=== PATIENT | male | born 1940 | race Caucasian/White ===

== ENCOUNTER → 2017-01-07 | Outpatient (REF) | payer MEDICARE, BC ==
[~2017-01-07] MED LIST: /WARF25TA PO; AMOLODIPINE PO; ATOR80TA14 PO; CALC600T21 PO; FISHCAP PO; FURO20TA PO; GLUCOSAMINE PO; IBUP200T2 PO; KLOR CON PO; OXYC1CON PO; PERCOCET PO; PRILOSEC PO; TYLE325T5 PO; VITA200019 PO; VITA400C2 PO; VITA500C PO; VITAMIN PO; [UNRECOGNIZED DRUG - OTHER] PO
[2017-01-07 12:46] LABS: BASO % 0.4 % (0.0-1.0); EOS # 0.1 10^3/uL (0.0-0.50); EOS % 1.7 % (0.0-3.0); IMMATURE GRANULOCYTE % 0.4 % (0-0); LYMPH # 1.8 10^3/uL (1.5-4.5); LYMPH % 23.2 % (24.0-44.0); MEAN CORPUSCULAR HEMOGLOBIN 30.6 pg (27.0-33.0); MEAN CORPUSCULAR HGB CONC 32.3 g/dl (32.0-36.5); MEAN CORPUSCULAR VOLUME 94.9 fl (80.0-96.0); MONO # 0.6 10^3/uL (0.0-0.8); MONO % 8.3 % (0.0-5.0); NEUTROPHILS # 5.1 10^3/uL (1.8-7.7); PLATELET COUNT, AUTOMATED 232 10^3/uL (150-450); RED CELL DISTRIBUTION WIDTH 11.7 % (11.5-14.5); WHITE BLOOD COUNT 7.7 10^3/uL (4.0-10.0)
[2017-01-07 13:43] LABS: ALBUMIN 3.2 GM/DL (3.2-5.2); ALKALINE PHOSPHATASE 72 U/L (45-117); ALT/SGPT 31 U/L (12-78); ANION GAP 7 MEQ/L (8-16); AST/SGOT 23 U/L (7-37); BILIRUBIN,TOTAL 0.4 MG/DL (0.2-1.0); BLOOD UREA NITROGEN 17 MG/DL (7-18); CALCIUM LEVEL 8.8 MG/DL (8.8-10.2); CARBON DIOXIDE LEVEL 31 MEQ/L (21-32); CHLORIDE LEVEL 106 MEQ/L (98-107); CREATININE FOR GFR 0.89 MG/DL (0.70-1.30); GLOMERULAR FILTRATION RATE > 60.0 (>42); GLUCOSE, FASTING 89 MG/DL (83-110); POTASSIUM SERUM 3.9 MEQ/L (3.5-5.1); SODIUM LEVEL 144 MEQ/L (136-145); TOTAL PROTEIN 6.1 GM/DL (6.4-8.2)
== END ==
LOC: M SFHCADAM 10:07
PROVIDERS: ATTEND Family Medicine
DX: M06.9 Rheumatoid arthritis, unspecified (principal)

== ENCOUNTER → 2017-02-06 | Outpatient (REF) | payer MEDICARE, BC ==
[2017-02-06 13:23] LABS: FOLATE > 24.0 NG/ML (>5.4); VITAMIN B12 LEVEL 879 PG/ML (247-911)
[2017-02-06 13:24] LABS: FERRITIN 50 NG/ML (26-388); PERCENT SATURATION 36.8 % (19.7-50.0); TOTAL IRON BINDING CAPACITY 288 UG/DL (250-450)
== END ==
LOC: M SFHCADAM 11:07
PROVIDERS: ATTEND Family Medicine
DX: D64.9 Anemia, unspecified (principal)

== ENCOUNTER → 2017-09-20 | Outpatient (CLI) | payer MEDICARE, BC ==
[2017-09-20 13:51] LABS: BASO % 0.4 % (0.0-1.0); EOS # 0.1 10^3/uL (0.0-0.50); HEMATOCRIT 37.5 % (42.0-52.0); HEMOGLOBIN 12.8 g/dl (13.5-17.5); IMMATURE GRANULOCYTE % 0.3 % (0-3.0); LYMPH # 1.6 10^3/uL (1.5-4.5); LYMPH % 20.9 % (24.0-44.0); MEAN CORPUSCULAR HEMOGLOBIN 30.7 pg (27.0-33.0); MEAN CORPUSCULAR HGB CONC 34.1 g/dl (32.0-36.5); MEAN CORPUSCULAR VOLUME 89.9 fl (80.0-96.0); MONO # 0.6 10^3/uL (0.0-0.8); MONO % 7.9 % (0.0-5.0); NEUTROPHILS # 5.3 10^3/uL (1.8-7.7); NEUTROPHILS % 69.5 % (36.0-66.0); PLATELET COUNT, AUTOMATED 223 10^3/uL (150-450); RED BLOOD COUNT 4.17 10^6/uL (4.30-6.10); RED CELL DISTRIBUTION WIDTH 11.5 % (11.5-14.5); WHITE BLOOD COUNT 7.6 10^3/uL (4.0-10.0)
[2017-09-20 14:16] LABS: C REACTIVE PROTEIN QUANTITATIV 3.96 MG/DL (0.00-0.30)
[2017-09-20 14:16] LABS: RHEUMATOID FACTOR QUANT 15.1 IU/ML (<15.0)
[2017-09-20 14:22] LABS: ERYTHROCYTE SEDIMENTATION RATE 57 mm/hr (0-20)
[2017-09-21 14:10] LABS: ANTINUCLEAR ANTIBODIES DIRECT Negative (Negative)
== END ==
LOC: M RADPRO 13:03
DX: M16.12 Unilateral primary osteoarthritis, left hip (principal); M79.605 Pain in left leg; Z96.652 Presence of left artificial knee joint; Z79.899 Other long term (current) drug therapy
CPT/HCPCS: 20610

== ENCOUNTER → 2017-12-16 | Outpatient (REF) | payer MEDICARE, BC | LOC: M SFHCADAM 12:05 | DX: I10 Essential (primary) hypertension (principal); M06.9 Rheumatoid arthritis, unspecified; D63.8 Anemia in other chronic diseases classified elsewhere ==

== ENCOUNTER → 2017-12-18 | Outpatient (REF) | payer MEDICARE, BC ==
[2017-12-18 13:30] LABS: BASO % 0.5 % (0.0-1.0); EOS # 0.2 10^3/uL (0.0-0.50); EOS % 2.1 % (0.0-3.0); HEMATOCRIT 41.3 % (42.0-52.0); HEMOGLOBIN 13.7 g/dl (13.5-17.5); IMMATURE GRANULOCYTE % 0.4 % (0-3.0); LYMPH # 2.3 10^3/uL (1.5-4.5); LYMPH % 29.3 % (24.0-44.0); MEAN CORPUSCULAR HEMOGLOBIN 30.8 pg (27.0-33.0); MEAN CORPUSCULAR HGB CONC 33.2 g/dl (32.0-36.5); MEAN CORPUSCULAR VOLUME 92.8 fl (80.0-96.0); MONO # 0.6 10^3/uL (0.0-0.8); MONO % 7.8 % (0.0-5.0); NEUTROPHILS # 4.7 10^3/uL (1.8-7.7); NEUTROPHILS % 59.9 % (36.0-66.0); PLATELET COUNT, AUTOMATED 188 10^3/uL (150-450); RED BLOOD COUNT 4.45 10^6/uL (4.30-6.10); WHITE BLOOD COUNT 7.9 10^3/uL (4.0-10.0)
[2017-12-18 13:42] LABS: ALBUMIN 3.3 GM/DL (3.2-5.2); ALBUMIN/GLOBULIN RATIO 1.03 (1.00-1.93); ALKALINE PHOSPHATASE 88 U/L (45-117); ALT/SGPT 24 U/L (12-78); ANION GAP 6 MEQ/L (8-16); AST/SGOT 23 U/L (7-37); BILIRUBIN,TOTAL 0.5 MG/DL (0.2-1.0); BLOOD UREA NITROGEN 14 MG/DL (7-18); C REACTIVE PROTEIN QUANTITATIV < 0.30 MG/DL (0.00-0.30); CALCIUM LEVEL 8.5 MG/DL (8.8-10.2); CARBON DIOXIDE LEVEL 30 MEQ/L (21-32); CHLORIDE LEVEL 106 MEQ/L (98-107); CHOLESTEROL LEVEL 157 MG/DL (<200); CHOLESTEROL RISK RATIO 3.488 (<5); CREATININE FOR GFR 0.92 MG/DL (0.70-1.30); GLOMERULAR FILTRATION RATE > 60.0 (>42); GLUCOSE, FASTING 84 MG/DL (70-100); HDL CHOLESTEROL 45 MG/DL (>40); LDL CHOLESTEROL 94 MG/DL (<100); NON-HDL-C 112 MG/DL; POTASSIUM SERUM 4.1 MEQ/L (3.5-5.1); SODIUM LEVEL 142 MEQ/L (136-145); TOTAL PROTEIN 6.5 GM/DL (6.4-8.2); TRIGLYCERIDES LEVEL 90 MG/DL (<150)
[2017-12-18 15:09] LABS: ERYTHROCYTE SEDIMENTATION RATE 11 mm/hr (0-20)
== END ==
LOC: M LABDRWAD 12:41
DX: I10 Essential (primary) hypertension (principal); M06.9 Rheumatoid arthritis, unspecified; D63.8 Anemia in other chronic diseases classified elsewhere
CPT/HCPCS: 80053

== ENCOUNTER → 2018-01-22 | Outpatient (REF) | payer MEDICARE, BC ==
[2018-01-22 13:20] LABS: URIC ACID 5.4 MG/DL (3.5-7.2)
== END ==
LOC: M SFHCADAM 08:14
DX: M79.674 Pain in right toe(s) (principal)
CPT/HCPCS: 84550

== ENCOUNTER → 2018-03-21 | Outpatient (CLI) | payer MEDICARE, BC ==
[~2018-03-21] MED LIST changes: +CALC500T36 PO; +D 50CAP PO; +FISH500C PO; +FLAX10008 PO; +FURO40TA2 PO; +GLUC1CAP9 PO; +HYDR200T3 PO; +MULTCAP PO; +OMEP40CA2 PO; +PANT500T PO; +POTA1TAB23 PO; +TURM500T PO; +VITA400C67 PO; +VITA500C24 PO; +[UNRECOGNIZED DRUG - CODE] PO
--- NOTE | 2018-03-21 09:02 | REP ---
Clinical: Preop evaluation. Technique: PA and lateral. Comparison: 01/24/2012 Findings: Mediastinum and cardiac silhouette are stable and within normal limits. Airway is patent and midline. Lung marin demonstrate chronic changes including scattered calcified granulomata. No acute consolidation, effusion, or pneumothorax. Skeletal structures demonstrate age-related degenerative change. Impression: Chronic stable changes. No acute cardiopulmonary process appreciated. Electronically Signed by Emanuel Cox MD 03/21/2018 08:53 A
[2018-03-21 09:06] LABS: HEMATOCRIT 40.2 % (42.0-52.0); HEMOGLOBIN 13.6 g/dl (13.5-17.5); MEAN CORPUSCULAR HEMOGLOBIN 30.2 pg (27.0-33.0); MEAN CORPUSCULAR HGB CONC 33.8 g/dl (32.0-36.5); MEAN CORPUSCULAR VOLUME 89.3 fl (80.0-96.0); PLATELET COUNT, AUTOMATED 168 10^3/uL (150-450); WHITE BLOOD COUNT 8.6 10^3/uL (4.0-10.0)
[2018-03-21 09:10] LABS: INR 1.09; PROTHROMBIN TIME 14.2 SECONDS (12.1-14.4)
[2018-03-21 09:29] LABS: ALBUMIN 3.3 GM/DL (3.2-5.2); ALT/SGPT 21 U/L (12-78); BILIRUBIN,TOTAL 0.4 MG/DL (0.2-1.0); BLOOD UREA NITROGEN 18 MG/DL (7-18); CALCIUM LEVEL 8.5 MG/DL (8.8-10.2); CARBON DIOXIDE LEVEL 29 MEQ/L (21-32); CHLORIDE LEVEL 106 MEQ/L (98-107); CREATININE FOR GFR 0.92 MG/DL (0.70-1.30); GLOMERULAR FILTRATION RATE > 60.0 (>42); GLUCOSE, FASTING 118 MG/DL (70-100); POTASSIUM SERUM 3.8 MEQ/L (3.5-5.1); SODIUM LEVEL 141 MEQ/L (136-145); TOTAL PROTEIN 6.6 GM/DL (6.4-8.2)
[2018-03-21 10:34] LABS: ERYTHROCYTE SEDIMENTATION RATE 10 mm/hr (0-20)
--- NOTE | 2018-03-22 17:39 | ECGEPIP ---
Stationary ECG Study [facility] Test Date: 2018-03-21 Pat Name: KATIE ROBERSON Department: Room: - Gender: M Brand Specialist: : 1940 Requested By: Kevin Rosenberg Order Number: [id number] Reading MD: Urbano Cummings Measurements Intervals [place] Rate: 52 P: 3 CO: 159 QRS: -14 QRSD: 92 T: 28 QT: 428 QTc: 401 Interpretive Statements SINUS BRADYCARDIA LEFT VENTRICULAR HYPERTROPHY AND ST-T CHANGE RIGHT VENTRICULAR CONDUCTION DELAY COMPARED TO THE 3 TRACINGS IN THE SYSTEM, NO SIGNIFICANT CHANGES Electronically Signed On 03-22-2018 17:39:12 EST by Urbano Cummings
== END ==
LOC: M LAB 08:19
PROVIDERS: ATTEND Family Medicine
DX: Z01.818 Encounter for other preprocedural examination (principal); M17.11 Unilateral primary osteoarthritis, right knee; I10 Essential (primary) hypertension

== ENCOUNTER 2018-04-08 06:17 | Inpatient (IN) | payer MEDICARE, BC ==
--- NOTE | 2018-04-02 09:09 | HPE ---
DATE OF ADMISSION: 04/08/2018 HISTORY OF PRESENT ILLNESS: This is a pleasant male with continuing right knee osteoarthritis. He has consented for right total knee arthroplasty per Dr. Darnell New. Medical optimization was completed with Dr. Jolly thought Dr. Weber's office. The patient states she was cleared, although I am still awaiting the note. X-rays are consistent with advanced osteoarthritis. ALLERGIES: None known to drugs. MEDICATIONS: List includes voltaren 1%. Klor-Con 10 mEq. Amlodipine besylate. Furosemide 40 mg. Omeprazole 40 mg. Tumeric 1000 mg. Men 50 + advance. Vitamin B12 2500 mcg. Vinpocetine 30 mg. Vitamin D 400 units. Vitamin D3 maximum strength 5000 units. Pantothenate acid is 500 mg. Vitamin C 1000 mg. Glucosamine chondroitin 1500 mcg 05/1199 mg. Flaxseed oil 1300 mg. Benazepril HCl. Hydroxychloroquine sulfate. MEDICAL PROBLEM LIST: 1. Symptomatic right knee. 2. Osteoarthritis. 3. Hypertension. 4. Reflux disease. 5. Rheumatoid arthritis. SURGICAL HISTORY: Pertinent for left total knee arthroplasty. FAMILY HISTORY: Positive for hypertension. SOCIAL HISTORY: He has never smoked. Denies ethanol intake or illicit drugs. REVIEW OF SYSTEMS: Denies chest pain, shortness of breath, dyspnea on exertion, fever, chills, malaise, upper respiratory or urinary tract symptoms. Preoperative Labs by Dr. Weber completed on 03/21/2018 showed hematocrit at 40.2. Glucose 118. Anion gap 6. Calcium 8.5. Chest x-ray results via [facility] service date 03/21/2018 shows chronic stable changes. No acute cardiopulmonary process appreciated. Electrocardiogram (EKG) result read by Dr. Clement Emiliano requesting provider, Dr. Weber 03/22/2018 FINDINGS: Sinus bradycardia, left first ventricular hypertrophy and ST-T change. Right ventricular conduction delay. No significant changes compared to three tracings in the system. PHYSICAL EXAMINATION: Height 5'6", weight 175.0, temperature 98.7, blood pressure (BP) 130/62, pulse 62, respirations 16. This is a pleasant well-developed, well-nourished male in no acute distress. He is alert and x3. Mood and affect are appropriate. He is ambulating without overt antalgic assistance or favoring. His bilateral lower extremities are supple, soft, nontender to palpation, grossly intact to light touch. Negative calf tenderness. Homans' sign, palpable cords. Skin is completely intact without any irritation. Right knee positive joint line tenderness with crepitance through flexion and extension. Left knee noted old healed anterior vertical knee scar site consistent with total knee arthroplasty. Bowels soft, nontender times four. Chest rises symmetrically. Regular rate and rhythm. Lungs are clear. Neck supple. Negative jugular venous distension (JVD) or bruits. Normocephalic. IMPRESSION: 1. Right knee symptomatic osteoarthritis. 2. The patient consented for right total knee arthroplasty per Dr. Darnell New. 3. Medical optimization completed by Dr. Jolly per patient's history. I am awaiting optimization note. 4. On-call to the operating room. 2 grams IV Kefzol in operating room. 5. SCDs and TEDs in operating room. MTDD
[~2018-04-08] VITALS: Ht 167.6 cm; Wt 79.4 kg
[2018-04-08] VITALS (7 sets, daily range): BP systolic 156–163; BP diastolic 80–101
[2018-04-08] MEDS ORDERED: EPINEPHrine INJ 1 MG/ML 1ML AMP As Ordered ONE (06:58)
[2018-04-08] MEDS ORDERED: TRANEXAMIC ACID 100 MG/ML 10ML VIAL As Ordered ONE (06:58)
[2018-04-08] MEDS ORDERED: ceFAZolin 1GM INJ (J0690 PER 500MG) As Ordered ONE (06:58)
[2018-04-08] MEDS ORDERED: BUPIVACAINE LIPOSOME/PF 1.3% 20ML VIAL (13.3MG/ML)(EXPAREL)(C9290 PER1MG) As Ordered ONE (06:58)
[2018-04-08] MEDS ORDERED: LR 1,000 ML IV ONE (07:00)
[2018-04-08] MEDS ORDERED: MUPI2OI (07:05)
[2018-04-08] MEDS ORDERED: MIDAZOLAM INJ 2 MG/2 ML VIAL (J2250) As Ordered ONE ×2 (07:26→09:14)
[2018-04-08] MEDS ORDERED: fentaNYL 100 MCG/2 ML INJECTION (J3010) As Ordered ONE (07:26)
--- NOTE | 2018-04-08 07:44 | IPN ---
DATE: 04/08/2018 The patient seen and examined. He wishes to go ahead with the right knee arthroplasty. He understands the nature of this, the risks of bleeding, infection, damage to nerves, vessels, persistent pain, wear loosening, blood clots, medical problems, among others. Preop clearance was obtained. He wishes to proceed.
[2018-04-08] MEDS ORDERED: MIDAZOLAM INJ 2 MG/2 ML VIAL (J2250) IV ONE (08:15)
[2018-04-08] MEDS ORDERED: fentaNYL 100 MCG/2 ML INJECTION (J3010) IV ONE (08:15)
[2018-04-08] MEDS ORDERED: BUPIVACAINE/DEXTROSE 0.75% 2 ML AMP As Ordered ONE (08:21)
[2018-04-08] MEDS ORDERED: PROPOFOL 200 MG/20 ML VIAL As Ordered ONE (08:24)
[2018-04-08] MEDS ORDERED: dexameTHASONE 10 MG/1 ML VIAL PRES.FREE (J1100) ONE (08:25)
[2018-04-08] MEDS ORDERED: ROPIvacaine 0.5% 30 ML INJECTION (J2795 PER 1MG) ONE (08:25)
[2018-04-08] MEDS ORDERED: ONDANSETRON 4MG/2ML VIAL (J2405) As Ordered ONE (09:14)
[2018-04-08] MEDS ORDERED: PROPOFOL 500 MG/50 ML VIAL As Ordered ONE (09:14)
[2018-04-08] MEDS ORDERED: LIDOCAINE 2% INJ 100 MG/5 ML SDV (FOR ANES.) As Ordered ONE (09:14)
[2018-04-08] MEDS ORDERED: MORPHINE 4 MG/ML 1ML VIAL/SYRINGE (J2270) IV PRN ×2 (10:30→10:45)
[2018-04-08] MEDS ORDERED: fentaNYL 100 MCG/2 ML INJECTION (J3010) IV PRN (10:45)
[2018-04-08] MEDS ORDERED: FLEET ENEMA PR PRN (10:45)
[2018-04-08] MEDS ORDERED: ACETAMINOPHEN TAB 650MG DOSE (2X325MG) PO PRN (10:45)
[2018-04-08] MEDS ORDERED: ONDANSETRON 4MG/2ML VIAL (J2405) IV PRN ×2 (10:45)
[2018-04-08] MEDS ORDERED: LR 1,000 ML IV SCH (10:45)
--- NOTE | 2018-04-08 11:18 | REP ---
PORTABLE AP LATERAL RIGHT KNEE: HISTORY: Postoperative. The patient is status post right total knee replacement. There is no acute fracture or dislocation. Subcutaneous air and surgical marcello are present in the overlying tissue. IMPRESSION: The patient is status post right total knee replacement. There is anatomic alignment. Electronically Signed by Cal Macario MD 04/08/2018 11:27 A
[2018-04-08] MEDS: LR 1,000 ML IV SCH ×2 (13:17→23:50)
[2018-04-08] MEDS: PERCOCET 5MG/325MG TAB PO PRN ×2 (13:25→20:08)
--- NOTE | 2018-04-08 22:53 | CR.PDOC ---
General Date of Consultation: Apr 08, 2018 Referring Provider: DEON KOLB PA-C Primary Care Physician: ED LEDESMA DO Attending Physician: ED LEDESMA DO Consultation REASON FOR CONSULTATION/CHIEF COMPLAINT: postop medicine consult HISTORY OF PRESENT ILLNESS: 68 year old male presents for elective R total knee arthroplasty ALLERGIES: Please see below. HOME MEDICATIONS: Please see below. PAST MEDICAL HISTORY: GERD, HTN, rheumatoid arthritis, Banuelos's esophagus, hyperlipidemia, known calcified granulomas in left lung, underlying osteoarthritis ECHO shows LVEF > 60%, borderline LVH, grade I diastolic dysfunction (01/2016), cataracts, dry eye, blepharitis, anemia of chronic disease PAST SURGICAL HISTORY: left knee replacement FAMILY HISTORY: Father: NE Mother: CVA Siblings: lung cancer, pancreatic cancer, Alzheimer's dementia SOCIAL HISTORY: Marital status and/or living arrangements: lives at home with his Employment: [email or web address] Denies tobacco, alcohol, or drug use REVIEW OF SYSTEMS: CONSTITUTIONAL: no fever, good appetite HEENT: no cold symptoms CARDIOVASCULAR: no chest pain RESPIRATORY: no dyspnea MUSCULOSKELETAL: denies knee pain, states right knee feels stiff GASTROINTESTINAL: no nausea or vomiting SKIN: no rash PSYCHIATRIC: mild pleasant confusion HEMATOLOGIC/LYMPHATIC: denies excess bleeding from incision PHYSICAL EXAMINATION: VITAL SIGNS: Please see below. GENERAL APPEARANCE: no acute distress HEENT: MMM RESPIRATORY: CTAB CARDIOVASCULAR: regular rate and rhythm ABDOMEN: bowel sounds positive, soft nontender nondistended EXTREMITIES: no edema NEUROLOGICAL: no focal deficit PSYCHIATRIC: mild pleasant confusion LABORATORY DATA: Please see below. ASSESSMENT/PLAN: 1. Postop R total knee arthroplasty -- routine care as per surgery 2. HTN -- resume Lasix and potassium 3. GERD -- resume omeprazole 4. RA -- resume Plaquenil postop day 2 Vital Signs/I&O Vital Signs Date Time Temp Pulse Resp B/P (MAP) Pulse Ox O2 Delivery O2 Flow Rate FiO2 04/08/18 20:08 16 04/08/18 17:00 98.8 67 160/89 (112) 98 04/08/18 11:15 Room Air 04/08/18 08:31 2 Allergies Coded Allergies: No Known Drug Allergy (Verified Allergy, Unknown, 03/10/18) Thiopental (Verified Allergy, Unknown, QUESTIONABLE, 03/10/18) Home Medications Scheduled (Multivitamins) 1 Cap Cap, 1 CAP PO DAILY, (Reported) (Glucosamine & Chondroitin 500-400 mg) 1 Cap Cap, 1 CAP PO DAILY, (Reported) Ascorbic Acid (Vitamin C) 500 Mg Cap, 1,000 MG PO DAILY, (Reported) Calcium Pantothenate (Pantothenic Acid) 500 Mg Tab, 500 MG PO BID, (Reported) Cholecalciferol (Vitamin D3) 5,000 Unit Cap, 5,000 UNIT PO DAILY, (Reported) Curcuma Longa (Turmeric) Extra (Turmeric) 500 Mg Tab, 500 MG PO DAILY, (Reported) Fish Oil (Fish Oil) 500 Mg Cap, 500 MG PO DAILY, (Reported) Furosemide (Furosemide) 40 Mg Tab, 40 MG PO DAILY, (Reported) Hydroxychloroquine Sulfate (Hydroxychloroquine Sulfat) 200 Mg Tab, 200 MG PO DAILY, (Reported) Linseed Oil (Flaxseed Oil) 1,000 Mg Cap, 1,000 MG PO DAILY, (Reported) Omeprazole (Omeprazole) 40 Mg Cap, 40 MG PO DAILY, (Reported) Oyster Shell Calcium (Calcium) 500 Mg Tab, 500 MG PO DAILY, (Reported) Potassium Chloride (Potassium Chloride ER) 10 Meq Tab, 10 MEQ PO BID, (Reported) Vinpocetine (Vinpocetine) 1 Pow Pow, 30 MG PO DAILY, (Reported) Vitamin E (Vitamin E-400) 400 Unit Cap, 400 UNIT PO DAILY, (Reported) Miscellaneous Medications Mupirocin (Mupirocin) 2 % Oin, (Reported) ED LEDESMA DO Apr 08, 2018 22:53
[2018-04-09] MEDS: PERCOCET 5MG/325MG TAB PO PRN ×2 (01:21→05:51)
[2018-04-09 02:00] VITALS: BP 128/64
[2018-04-09 06:00] VITALS: BP 168/78
[2018-04-09] MEDS ORDERED: PERCOCET 5MG/325MG TAB PO PRN (06:30)
[2018-04-09 06:31] LABS: HEMATOCRIT 33.5 % (42.0-52.0); HEMOGLOBIN 11.5 g/dl (13.5-17.5); MEAN CORPUSCULAR HEMOGLOBIN 30.7 pg (27.0-33.0); MEAN CORPUSCULAR HGB CONC 34.3 g/dl (32.0-36.5); MEAN CORPUSCULAR VOLUME 89.3 fl (80.0-96.0); PLATELET COUNT, AUTOMATED 143 10^3/uL (150-450); RED BLOOD COUNT 3.75 10^6/uL (4.30-6.10)
[2018-04-09] MEDS ORDERED: XARE10TA PO (06:40)
[2018-04-09] MEDS ORDERED: PERC5TAB12 PO (06:40)
[2018-04-09] MEDS ORDERED: OMEPRAZOLE 20 MG CAP PO SCH (09:00)
[2018-04-09] MEDS ORDERED: MIRALAX *UNIT DOSE* 17GM PACKET PO SCH (09:00)
[2018-04-09] MEDS ORDERED: POTASSIUM CHLORIDE 10 MEQ SR TABLET PO SCH (09:00)
[2018-04-09] MEDS ORDERED: FUROSEMIDE 40 MG TAB PO SCH (09:00)
[2018-04-09] MEDS ORDERED: MOM 30ML SUSPENSION UDC PO SCH (09:00)
[2018-04-09] MEDS ORDERED: RIVAROXABAN 10 MG TAB (XARELTO) PO SCH (09:00)
--- NOTE | 2018-04-09 09:47 | RO ---
DATE OF PROCEDURE: 04/08/2018 PREOPERATIVE DIAGNOSIS: Right Knee Osteoarthritis POSTOPERATIVE DIAGNOSIS: same PROCEDURE: Right total knee arthroplasty using a Attune rotating platform cruciate retaining size 7 femur, size 7 tibia, 8 polyethylene and a 38 patellar button. SURGEON: Darnell New MD WOOD VENEER TAPER: SVETLANA Mccoy ANESTHESIA: Spinal ESTIMATED BLOOD LOSS: Less than 50. COMPLICATIONS: None. INDICATIONS: This is a 77-year-old gentleman who has had gradually worsening right knee pain. He has severe arthritis and wished to go ahead with a knee replacement having failed conservative management. He understood the nature this, the risks of bleeding, infection, damage to nerves, vessels, persistent pain, wear loosening, blood clots, medical problems, , among others. DESCRIPTION OF PROCEDURE: The patient was taken to the operating room and placed in supine position after spinal anesthesia was anesthesia was induced. The right lower extremity was prepped and draped in usual sterile fashion. Time-out was performed. Tourniquet was inflated. I then created a longitudinal incision over the anterior aspect of the knee, performed a medial parapatellar arthrotomy per routine, everted the patella and flexed the knee up used a canal initiating reamer on the femoral side, followed by the intramedullary guide set at 5 degrees of valgus and a 9 mm cut. This was pinned in place by the central supply assistant and the central supply assistant made the distal femoral cut under my direct supervision as I protected soft tissues. Sized the femur to be a 7. Placed the drill holes in the end of the femur with the external rotation dialed in and the cutting block size 7 was placed. This was secured in place. The remaining cuts were made. I then used the cutting guide to create the notch in the end of the femur to allow for the trochlear groove of the component. We then prepared the tibia. Tibial alignment guide was placed in the appropriate amount of valgus and posterior slope and pinned in place at 4 mm off the low side. The proximal tibia cut was made. The bone was removed and I then used a senior php web developer to remove soft tissue and bone and osteophytes from either side. The gap appeared to be appropriate. I had done a medial release. The tibial tray was prepared. A size 7 fit very nicely. This was pinned in place, drilled, broached and then the trial components were placed. I had used the spacer blocks to determine that a size 8 seemed to be the most appropriate for flexion and extension with excellent alignment and balance. The patella then freehand cut removing about 7 mm of bone sized to be a 38. Drill holes were placed. Drill holes were placed at the end of the femur. The central supply assistant prepared the bone cement in the modern technique. I removed the trial components and irrigated. Placed some of the Exparel in the deep tissues. Dried the bony surfaces. Cemented on the tibial tray. Placed polyethylene cement on the femoral. Placed polyethylene and all excess bone cement was removed and the patella was cemented on as well, held in place with the clamp. Once all the excess bone cement had been removed and the cement had hardened, we removed the patellar clamp. We irrigated, placed the tranexamic acid (TXA) solution, placed the Exparel that was remaining in the deep tissues. Closed the deep layer with interrupted #1 Vicryl suture in running Stratafix suture obtaining a watertight closure. I had, had to do a lateral release to some degree but the patella tracked very nicely following the lateral release and it was tracking well once the wound was closed. The superficial layer was irrigated. Subcutaneous was closed with #2-0 Vicryl, skin with marcello. Sterile dressing was applied. Tourniquet was deflated and he was taken to recovery in stable condition. There were no known complications. The central supply assistant was instrumental in holding retractors and assisting in mixing the bone cement, making one of the cuts and assisting in wound closure. STACIE
--- NOTE | 2018-04-11 15:29 | DSES ---
DATE OF ADMISSION: 04/08/2018 DATE OF DISCHARGE: 04/09/2018 ATTENDING PHYSICIAN: Dr. New ADMISSION DIAGNOSIS: Osteoarthritis, right knee. OTHER DIAGNOSES: 1. Gastric reflux disease. 2. Hypertension. 3. Rheumatoid arthritis. 4. Elevated lipids. 5. Banuelos's esophagitis. 6. Anemia of chronic disease. DISCHARGE DIAGNOSIS: Osteoarthritis, right knee status post right total knee arthroplasty. OPERATION PERFORMED: Right total knee arthroplasty. HISTORY: This is a pleasant 77-year-old male patient with progressively worsening right knee pain and stiffness. He failed to improve with conservative management. He was admitted for elective knee replacement on the right side. HOSPITAL COURSE: The patient was admitted on the day of surgery and underwent a right total knee arthroplasty which was uneventful. He did well in the postoperative period and his hospital course was without complications. He was up with physical therapy per their protocol and his pain was controlled. On the day of discharge, he was doing well, weightbearing as tolerated on his right lower extremity. He will use thromboembolic-deterrent (PATT) stockings for 30 days for deep vein thrombosis (DVT) prophylaxis. He will also the use Xarelto 10 mg per the protocol for DVT prophylaxis. He will resume his preoperative medications and diet. He was given instructions to include but not limited to wound monitoring and activity limitations. He will followup in our office in 10-14 days for surgical followup. Please refer to the medical record further details.
== END 2018-04-09 11:20 | disposition home or self-care (01) | DRG 470 ==
LOC: M OR 06:17 → M MS5PR 11:25
PROVIDERS: ADMIT Orthopaedic Surgery; ATTEND Orthopaedic Surgery
PROC: 0SRC0J9 Replacement of Right Knee Joint with Synthetic Substitute, Cemented, Open Approach (ICD-10-PCS; principal; 2018-04-08 08:00)
DX: M17.11 Unilateral primary osteoarthritis, right knee (principal); I10 Essential (primary) hypertension; K21.9 Gastro-esophageal reflux disease without esophagitis; M06.9 Rheumatoid arthritis, unspecified; Z96.652 Presence of left artificial knee joint; Z79.899 Other long term (current) drug therapy; K22.70 Barrett's esophagus without dysplasia; J84.10 Pulmonary fibrosis, unspecified; D63.8 Anemia in other chronic diseases classified elsewhere

== ENCOUNTER → 2018-06-23 | Outpatient (REF) | payer MEDICARE, BC ==
[~2018-06-23] MED LIST changes: -/WARF25TA PO; +CALC12504 PO; -CALC500T36 PO; +COUM1TAB18 PO; +MUPI2OI; +OXYC1TAB23 PO; +PERC5TAB12 PO; -PERCOCET PO; +XARE10TA PO
== END ==
LOC: M SFHCPLAZ 12:00
PROVIDERS: ATTEND Internal Medicine Rheumatology
DX: M05.79 Rheumatoid arthritis with rheumatoid factor of multiple sites without organ or systems involvement (principal); Z53.8 Procedure and treatment not carried out for other reasons

== ENCOUNTER → 2018-06-26 | Outpatient (REF) | payer MEDICARE, BC ==
[2018-06-26 13:41] LABS: BASO % 0.5 % (0.0-1.0); EOS # 0.2 10^3/uL (0.0-0.50); EOS % 2.3 % (0.0-3.0); HEMATOCRIT 42.1 % (42.0-52.0); HEMOGLOBIN 13.6 g/dl (13.5-17.5); LYMPH # 2.3 10^3/uL (1.5-4.5); LYMPH % 31.6 % (24.0-44.0); MEAN CORPUSCULAR HEMOGLOBIN 30.4 pg (27.0-33.0); MEAN CORPUSCULAR HGB CONC 32.3 g/dl (32.0-36.5); MEAN CORPUSCULAR VOLUME 94.2 fl (80.0-96.0); MONO # 0.6 10^3/uL (0.0-0.8); MONO % 8.5 % (0.0-5.0); NEUTROPHILS # 4.2 10^3/uL (1.8-7.7); NEUTROPHILS % 56.7 % (36.0-66.0); PLATELET COUNT, AUTOMATED 182 10^3/uL (150-450); RED BLOOD COUNT 4.47 10^6/uL (4.30-6.10); WHITE BLOOD COUNT 7.4 10^3/uL (4.0-10.0)
[2018-06-26 13:50] LABS: ALBUMIN 3.6 GM/DL (3.2-5.2); ALT/SGPT 21 U/L (12-78); BILIRUBIN,TOTAL 0.4 MG/DL (0.2-1.0); BLOOD UREA NITROGEN 17 MG/DL (7-18); C REACTIVE PROTEIN QUANTITATIV < 0.30 MG/DL (0.00-0.30); CALCIUM LEVEL 8.6 MG/DL (8.8-10.2); CARBON DIOXIDE LEVEL 31 MEQ/L (21-32); CHLORIDE LEVEL 106 MEQ/L (98-107); CREATININE FOR GFR 0.91 MG/DL (0.70-1.30); GLOMERULAR FILTRATION RATE > 60.0 (>42); GLUCOSE, FASTING 90 MG/DL (70-100); POTASSIUM SERUM 4.1 MEQ/L (3.5-5.1); SODIUM LEVEL 142 MEQ/L (136-145); TOTAL PROTEIN 6.5 GM/DL (6.4-8.2)
[2018-06-26 14:07] LABS: ERYTHROCYTE SEDIMENTATION RATE 11 mm/hr (0-20)
== END ==
LOC: M LABDRWAD 12:58
PROVIDERS: ATTEND Internal Medicine Rheumatology
DX: M05.79 Rheumatoid arthritis with rheumatoid factor of multiple sites without organ or systems involvement (principal)

== ENCOUNTER → 2018-09-24 | Outpatient (REF) | payer MEDICARE, BC ==
[~2018-09-24] MED LIST changes: -CALC12504 PO; +CALC500T61 PO
[2018-09-24 12:49] LABS: BASO % 0.5 % (0.0-1.0); EOS # 0.2 10^3/uL (0.0-0.50); EOS % 2.2 % (0.0-3.0); HEMATOCRIT 41.9 % (42.0-52.0); HEMOGLOBIN 13.6 g/dl (13.5-17.5); LYMPH # 2.5 10^3/uL (1.5-4.5); LYMPH % 29.6 % (24.0-44.0); MEAN CORPUSCULAR HEMOGLOBIN 29.9 pg (27.0-33.0); MEAN CORPUSCULAR HGB CONC 32.5 g/dl (32.0-36.5); MEAN CORPUSCULAR VOLUME 92.1 fl (80.0-96.0); MONO # 0.7 10^3/uL (0.0-0.8); MONO % 7.9 % (0.0-5.0); NEUTROPHILS % 59.6 % (36.0-66.0); PLATELET COUNT, AUTOMATED 189 10^3/uL (150-450); RED BLOOD COUNT 4.55 10^6/uL (4.30-6.10); WHITE BLOOD COUNT 8.3 10^3/uL (4.0-10.0)
[2018-09-24 13:15] LABS: ALBUMIN 3.5 GM/DL (3.2-5.2); ALT/SGPT 20 U/L (12-78); BILIRUBIN,TOTAL 0.3 MG/DL (0.2-1.0); BLOOD UREA NITROGEN 23 MG/DL (7-18); C REACTIVE PROTEIN QUANTITATIV < 0.30 MG/DL (0.00-0.30); CALCIUM LEVEL 9.2 MG/DL (8.8-10.2); CARBON DIOXIDE LEVEL 33 MEQ/L (21-32); CHLORIDE LEVEL 107 MEQ/L (98-107); CPK CREATINE PHOSPHOKINASE 86 U/L (39-308); CREATININE FOR GFR 1.04 MG/DL (0.70-1.30); GLOMERULAR FILTRATION RATE > 60.0 (>35); GLUCOSE, FASTING 95 MG/DL (70-100); POTASSIUM SERUM 4.4 MEQ/L (3.5-5.1); SODIUM LEVEL 142 MEQ/L (136-145)
[2018-09-24 14:32] LABS: ERYTHROCYTE SEDIMENTATION RATE 10 mm/hr (0-20)
== END ==
LOC: M SFHCRHEU 09:49
PROVIDERS: ATTEND Internal Medicine Rheumatology
DX: M05.79 Rheumatoid arthritis with rheumatoid factor of multiple sites without organ or systems involvement (principal)
CPT/HCPCS: 80053; 82550; 84443; 85025; 85652; 86140; G0463

== ENCOUNTER → 2019-02-02 | Outpatient (REF) | payer MEDICARE, BC ==
[~2019-02-02] MED LIST changes: -OMEP40CA2 PO; +OMEP40CA97 PO
[2019-02-02 12:48] LABS: BASO % 0.3 % (0.0-1.0); EOS # 0.1 10^3/uL (0.0-0.5); EOS % 1.4 % (0.0-3.0); HEMATOCRIT 42.2 % (42.0-52.0); HEMOGLOBIN 13.8 g/dl (13.5-17.5); LYMPH # 2.6 10^3/uL (1.5-5.0); LYMPH % 26.9 % (24.0-44.0); MEAN CORPUSCULAR HGB CONC 32.7 g/dl (32.0-36.5); MEAN CORPUSCULAR VOLUME 94.8 fl (80.0-96.0); MONO # 0.7 10^3/uL (0.0-0.8); MONO % 7.2 % (0.0-5.0); NEUTROPHILS # 6.1 10^3/uL (1.5-8.5); NEUTROPHILS % 63.9 % (36.0-66.0); PLATELET COUNT, AUTOMATED 181 10^3/uL (150-450); RED BLOOD COUNT 4.45 10^6/uL (4.30-6.10); WHITE BLOOD COUNT 9.5 10^3/uL (4.0-10.0)
[2019-02-02 13:03] LABS: ALBUMIN 3.5 GM/DL (3.2-5.2); ALT/SGPT 20 U/L (12-78); BILIRUBIN,TOTAL 0.4 MG/DL (0.2-1.0); BLOOD UREA NITROGEN 20 MG/DL (7-18); CARBON DIOXIDE LEVEL 31 MEQ/L (21-32); CHLORIDE LEVEL 108 MEQ/L (98-107); CREATININE FOR GFR 1.06 MG/DL (0.70-1.30); GLOMERULAR FILTRATION RATE > 60.0 (>35); GLUCOSE, FASTING 117 MG/DL (70-100); POTASSIUM SERUM 4.3 MEQ/L (3.5-5.1); SODIUM LEVEL 144 MEQ/L (136-145); TOTAL PROTEIN 6.9 GM/DL (6.4-8.2)
== END ==
LOC: M LABDRWAD 12:06
PROVIDERS: ATTEND Family Medicine
DX: L29.9 Pruritus, unspecified (principal); I10 Essential (primary) hypertension
CPT/HCPCS: 36415; 80053; 84443; 85025; G0463

== ENCOUNTER 2019-03-27 11:58 | Emergency (ER) | payer MEDICARE, BC ==
[~2019-03-27] VITALS: Ht 167.6 cm; Wt 75.9 kg
[2019-03-27] MEDS ORDERED: BUPIVACAINE HCL 0.5% 10 ML VIAL SC ONE (13:15)
[2019-03-27] MEDS ORDERED: LIDOCAINE W/EPINEPHRINE 1% 20ML VIAL SC ONE (13:15)
--- NOTE | 2019-03-27 13:44 | REP ---
Left thumb: Four views. History: Table saw injury. Findings: There is an open and comminuted fracture of the distal tuft of the thumb with overlying soft tissues swelling irregularity and overlying dressing. There is also IP and MCP joint osteoarthritis. There is a metallic foreign body at the dorsal aspect of the first metacarpal. No other evidence of foreign body seen. Impression: Open distal phalangeal fracture at the thumb. IP joint osteoarthritis. Metallic foreign body adjacent to the first metacarpal diaphysis. Question old foreign body. Electronically Signed by Jae Worrell MD 03/27/2019 01:56 P
[2019-03-27] MEDS ORDERED: cefTRIAXone SOD 1 GM in D5W MINI-BAG PLUS 50 ML IV ONE (14:00)
[2019-03-27] MEDS ORDERED: KEFL500C17 PO (15:00)
[2019-03-27] MEDS ORDERED: NORC1TAB7 PO (15:00)
[2019-03-27] MEDS ORDERED: AMLO5TAB6 PO (15:22)
[2019-03-27 15:47] VITALS: BP 172/80
== END 2019-03-27 16:06 | disposition home or self-care (01) ==
LOC: EDBD 11:58 → M ED 11:58
DX: S62.522A Displaced fracture of distal phalanx of left thumb, initial encounter for closed fracture (principal); W31.2XXA Contact with powered woodworking and forming machines, initial encounter; Y92.099 Unspecified place in other non-institutional residence as the place of occurrence of the external cause; Y93.9 Activity, unspecified; Y99.9 Unspecified external cause status; K21.9 Gastro-esophageal reflux disease without esophagitis; I10 Essential (primary) hypertension; E78.5 Hyperlipidemia, unspecified; K22.70 Barrett's esophagus without dysplasia; M19.042 Primary osteoarthritis, left hand; Z79.899 Other long term (current) drug therapy; Z88.8 Allergy status to other drugs, medicaments and biological substances
CPT/HCPCS: 73140; 96374; 99284; J0696

== ENCOUNTER 2019-07-10 11:47 | Emergency (ER) | payer MEDICARE, BC ==
[~2019-07-10] VITALS: Ht 170.2 cm; Wt 77.5 kg
[~2019-07-10 11:47] MED LIST changes: +AMLO5TAB6 PO; +KEFL500C17 PO; +NORC1TAB7 PO
[2019-07-10] MEDS ORDERED: RA T500C2 PO (12:14)
[2019-07-10] MEDS ORDERED: CIDA500T2 PO (12:14)
[2019-07-10] MEDS ORDERED: VITAD1000T PO (12:14)
[2019-07-10 12:56] LABS: BASO # 0.1 10^3/uL (0.0-0.2); BASO % 0.4 % (0.0-1.0); EOS % 0.3 % (0.0-3.0); HEMATOCRIT 42.1 % (42.0-52.0); HEMOGLOBIN 14.3 g/dl (13.5-17.5); LYMPH # 2.2 10^3/uL (1.5-5.0); LYMPH % 18.5 % (24.0-44.0); MEAN CORPUSCULAR HEMOGLOBIN 31.2 pg (27.0-33.0); MEAN CORPUSCULAR VOLUME 91.9 fl (80.0-96.0); MONO # 0.6 10^3/uL (0.0-0.8); MONO % 4.8 % (0.0-5.0); NEUTROPHILS # 8.8 10^3/uL (1.5-8.5); NEUTROPHILS % 75.7 % (36.0-66.0); PLATELET COUNT, AUTOMATED 200 10^3/uL (150-450); RED BLOOD COUNT 4.58 10^6/uL (4.30-6.10); WHITE BLOOD COUNT 11.7 10^3/uL (4.0-10.0)
[2019-07-10] MEDS ORDERED: NS 1,000 ML IV SCH (13:00)
[2019-07-10 13:06] LABS: INR 1.14; PROTHROMBIN TIME 14.3 SECONDS (11.8-14.0)
[2019-07-10] MEDS ORDERED: MECLIZINE 25 MG TABLET PO ONE (13:15)
[2019-07-10] MEDS ORDERED: lisinopriL 20 MG TAB PO ONE (13:30)
[2019-07-10 13:36] LABS: BLOOD UREA NITROGEN 21 MG/DL (7-18); CALCIUM LEVEL 8.6 MG/DL (8.8-10.2); CARBON DIOXIDE LEVEL 29 MEQ/L (21-32); CHLORIDE LEVEL 111 MEQ/L (98-107); CK-MB VALUE MASS 5.7 NG/ML (<3.6); CPK CREATINE PHOSPHOKINASE 109 U/L (39-308); GLOMERULAR FILTRATION RATE > 60.0 (>35); GLUCOSE, FASTING 142 MG/DL (70-100); MAGNESIUM LEVEL 2.3 MG/DL (1.8-2.4); MB/CK RELATIVE INDEX 5.23 (< OR =4); POTASSIUM SERUM 3.7 MEQ/L (3.5-5.1); SODIUM LEVEL 145 MEQ/L (136-145); TROPONIN I < 0.02 NG/ML (< 0.10)
[2019-07-10 13:37] LABS: ETHYL ALCOHOL (ETHANOL) < 0.003 % (0.000-0.010); THYROID STIMULATING HORMONE 0.747 uIU/ML (0.358-3.740)
[2019-07-10 13:43] VITALS: BP 178/87
--- NOTE | 2019-07-10 14:06 | REP ---
CT BRAIN WITHOUT CONTRAST: HISTORY: Dizziness. Comparison CT study January 24, 2012. FINDINGS: Digital lump receiver radiograph demonstrates that the patient is edentulous. Bony calvarium is intact on lump receiver and bone window setting axial images. Visualized paranasal sinuses are clear. There is some vascular calcification in the distal internal carotid arteries bilaterally. On soft-tissue window settings, there is generalized volume loss. There are tiny foci of low density in the right thalamus and left inferior basal ganglia consistent with tiny old lacunar infarcts. No acute infarction is seen. Mild small vessel changes are seen. No extra-axial fluid collection, mass, or hemorrhage is noted. IMPRESSION: Old lacunar infarcts in the basal ganglia. Diffuse atrophy and vascular calcification. No acute intracranial abnormality seen. Electronically Signed by Jae Worrell MD 07/10/2019 04:16 P
--- NOTE | 2019-07-10 14:22 | REP ---
PORTABLE CHEST X-RAY: SINGLE VIEW. HISTORY: Syncope/near syncope. COMPARISON STUDY: March 21, 2018 FINDINGS: There are granulomatous calcifications again noted in the left lung. The lung marin are otherwise clear. The pleural angles are sharp. The aorta is somewhat tortuous. Heart size is normal. Pulmonary vasculature is not increased. No bony abnormalities seen. IMPRESSION: Granulomatous calcifications on the left. Otherwise, no acute disease. Electronically Signed by Jae Worrell MD 07/10/2019 04:17 P
[2019-07-10] MEDS ORDERED: LISI-538 PO (15:26)
[2019-07-10 15:30] VITALS: BP 187/81
[2019-07-10] MEDS ORDERED: [UNRECOGNIZED DRUG - SUPPLY] (15:33)
--- NOTE | 2019-07-10 15:44 | ECGEPIP ---
[facility] - ED Test Date: 2019-07-10 Pat Name: KATIE ROBERSON Department: Room: - Gender: Male Discovery Guide: angeles TREJOB: 1940 Requested By: AUGUSTINA MILLER Order Number: [id number] Reading MD: Alyssa Nieves Measurements Intervals [place] Rate: 43 P: 22 HI: 177 QRS: -17 QRSD: 91 T: 53 QT: 438 QTc: 372 Interpretive Statements SINUS BRADYCARDIA LAD LEFT VENTRICULAR HYPERTROPHY AND ST-T CHANGE RIGHT VENTRICULAR CONDUCCTION DELAY CW 03/21/18 RATE DECREASED SIMILAR MORPHOLOGY Electronically Signed on 07-10-2019 15:44:02 EDT by Alyssa Nieves
== END 2019-07-10 15:45 | disposition home or self-care (01) ==
LOC: M ED 11:47
DX: R00.1 Bradycardia, unspecified (principal); R42 Dizziness and giddiness; I10 Essential (primary) hypertension; R53.1 Weakness; I25.10 Atherosclerotic heart disease of native coronary artery without angina pectoris; F41.9 Anxiety disorder, unspecified
CPT/HCPCS: 70450; 71045; 80048; 81001; 82550; 82553; 83735; 84443; 84484; 85025; 85610; 93005; 93041; 94760; 96360; 96361; 99285; G0480

== ENCOUNTER → 2019-07-22 | Outpatient (REF) | payer MEDICARE, BC ==
[~2019-07-22] MED LIST changes: +CIDA500T2 PO; +LISI-538 PO; +RA T500C2 PO; +VITAD1000T PO; +[UNRECOGNIZED DRUG - SUPPLY]
[2019-07-25 14:09] LABS: Lyme Disease IgG Ab 18 kDa Ban Present (.); Lyme Disease IgG Ab 23 kDa Ban Present (.); Lyme Disease IgG Ab 28 kDa Ban Present (.); Lyme Disease IgG Ab 30 kDa Ban Present (.); Lyme Disease IgG Ab 39 kDa Ban Present (.); Lyme Disease IgG Ab 41 kDa Ban Present (.); Lyme Disease IgG Ab 45 kDa Ban Present (.); Lyme Disease IgG Ab 58 kDa Ban Present (.); Lyme Disease IgG Ab 66 kDa Ban Present (.); Lyme Disease IgG Ab 93 kDa Ban Present (.); Lyme Disease IgG West Blot Int Positive (.); Lyme Disease IgG/IgM Antibodie 4.03 ISR (0.00-0.90); Lyme Disease IgM Ab 23 kDa Ban Absent (.); Lyme Disease IgM Ab 39 kDa Ban Absent (.); Lyme Disease IgM Ab 41 kDa Ban Absent (.); Lyme Disease IgM Ab Quantitati 2.06 index (0.00-0.79); Lyme Disease IgM West Blot Int Negative (.)
== END ==
LOC: M LABDRWAD 16:24
PROVIDERS: ATTEND Internal Medicine Cardiovascular Disease
DX: R42 Dizziness and giddiness (principal)

== ENCOUNTER → 2019-09-23 | Outpatient (REF) | payer MEDICARE, BC ==
[~2019-09-23] MED LIST changes: +AMLO1TAB24 PO; -AMLO5TAB6 PO; +D31000TA2 PO; -VITAD1000T PO
[2019-12-08 12:12] LABS: GLUCOSE, FASTING SEE SEPARATE REPORT
== END ==
LOC: M LABDRWAD 09:09
PROVIDERS: ATTEND Internal Medicine Cardiovascular Disease
DX: E78.5 Hyperlipidemia, unspecified (principal); I10 Essential (primary) hypertension; R42 Dizziness and giddiness

== ENCOUNTER → 2020-04-06 | Outpatient (REF) | payer MEDICARE, BC ==
[~2020-04-06] MED LIST changes: -LISI-538 PO; +LISI20TA33 PO
[2020-04-06 13:19] LABS: HEMOGLOBIN 13.4 g/dl (13.5-17.5); MEAN CORPUSCULAR HEMOGLOBIN 30.7 pg (27.0-33.0); MEAN CORPUSCULAR HGB CONC 32.7 g/dl (32.0-36.5); MEAN CORPUSCULAR VOLUME 93.8 fl (80.0-96.0); PLATELET COUNT, AUTOMATED 182 10^3/uL (150-450); RED BLOOD COUNT 4.37 10^6/uL (4.30-6.10)
[2020-04-06 13:55] LABS: ALBUMIN 3.4 GM/DL (3.2-5.2); ALT/SGPT 19 U/L (12-78); BILIRUBIN,TOTAL 0.4 MG/DL (0.2-1.0); BLOOD UREA NITROGEN 18 MG/DL (7-18); CALCIUM LEVEL 8.7 MG/DL (8.8-10.2); CARBON DIOXIDE LEVEL 29 MEQ/L (21-32); CHLORIDE LEVEL 108 MEQ/L (98-107); CHOLESTEROL LEVEL 195 MG/DL (<200); CHOLESTEROL RISK RATIO 4.333 (<5); CREATININE FOR GFR 0.99 MG/DL (0.70-1.30); GLOMERULAR FILTRATION RATE > 60.0 (>35); GLUCOSE, FASTING 74 MG/DL (70-100); HDL CHOLESTEROL 45 MG/DL (>40); LDL CHOLESTEROL 131 MG/DL (<100); NON-HDL-C 150 MG/DL; POTASSIUM SERUM 3.7 MEQ/L (3.5-5.1); SODIUM LEVEL 144 MEQ/L (136-145); TOTAL PROTEIN 6.5 GM/DL (6.4-8.2); TRIGLYCERIDES LEVEL 95 MG/DL (<150)
== END ==
LOC: M LABDRWAD 12:33
PROVIDERS: ATTEND Nurse Practitioner Family
DX: E78.5 Hyperlipidemia, unspecified (principal); I10 Essential (primary) hypertension; I77.810 Thoracic aortic ectasia

== ENCOUNTER → 2020-06-07 | Outpatient (REF) | payer MEDICARE, BC ==
[2020-06-07 13:24] LABS: BASO % 0.4 % (0.0-1.0); EOS # 0.2 10^3/uL (0.0-0.5); EOS % 2.2 % (0.0-3.0); HEMATOCRIT 42.8 % (42.0-52.0); HEMOGLOBIN 13.9 g/dl (13.5-17.5); LYMPH # 3.5 10^3/uL (1.5-5.0); LYMPH % 38.8 % (24.0-44.0); MEAN CORPUSCULAR HEMOGLOBIN 30.8 pg (27.0-33.0); MEAN CORPUSCULAR HGB CONC 32.5 g/dl (32.0-36.5); MEAN CORPUSCULAR VOLUME 94.7 fl (80.0-96.0); MONO # 0.8 10^3/uL (0.0-0.8); MONO % 8.5 % (2.0-8.0); NEUTROPHILS # 4.5 10^3/uL (1.5-8.5); NEUTROPHILS % 49.8 % (36.0-66.0); PLATELET COUNT, AUTOMATED 188 10^3/uL (150-450); RED BLOOD COUNT 4.52 10^6/uL (4.30-6.10); WHITE BLOOD COUNT 9.1 10^3/uL (4.0-10.0)
[2020-06-07 14:07] LABS: ALBUMIN 3.3 GM/DL (3.2-5.2); ALT/SGPT 18 U/L (12-78); BILIRUBIN,TOTAL 0.5 MG/DL (0.2-1.0); BLOOD UREA NITROGEN 16 MG/DL (7-18); CALCIUM LEVEL 8.7 MG/DL (8.8-10.2); CARBON DIOXIDE LEVEL 27 MEQ/L (21-32); CHLORIDE LEVEL 108 MEQ/L (98-107); CHOLESTEROL LEVEL 179 MG/DL (<200); CHOLESTEROL RISK RATIO 3.729 (<5); CREATININE FOR GFR 0.86 MG/DL (0.70-1.30); GLOMERULAR FILTRATION RATE > 60.0 (>35); GLUCOSE, FASTING 81 MG/DL (70-100); HDL CHOLESTEROL 48 MG/DL (>40); LDL CHOLESTEROL 118 MG/DL (<100); NON-HDL-C 131 MG/DL; POTASSIUM SERUM 3.8 MEQ/L (3.5-5.1); SODIUM LEVEL 143 MEQ/L (136-145); TOTAL PROTEIN 6.6 GM/DL (6.4-8.2); TRIGLYCERIDES LEVEL 65 MG/DL (<150)
== END ==
LOC: M SFHCADAM 08:08
PROVIDERS: ATTEND Family Medicine
DX: Z00.00 Encounter for general adult medical examination without abnormal findings (principal); K21.9 Gastro-esophageal reflux disease without esophagitis; N50.89 Other specified disorders of the male genital organs; R35.1 Nocturia
CPT/HCPCS: 80053; 80061; 84443; 85025; G0103

== ENCOUNTER → 2020-06-28 | Outpatient (REF) | payer MEDICARE, BC | LOC: M SMT 16:47 | PROVIDERS: ATTEND Urology | DX: R97.20 Elevated prostate specific antigen [PSA] (principal); Z79.899 Other long term (current) drug therapy | CPT/HCPCS: 81002; 87088; 87184; G0463 ==

== ENCOUNTER → 2020-08-02 | Outpatient (REF) | payer MEDICARE, BC ==
[~2020-08-02] MED LIST changes: +OMEP40CA4 PO; -OMEP40CA97 PO
[2020-08-02 14:25] LABS: APPEARANCE, URINE CLEAR (CLEAR); BACTERIA, URINE AUTO NEGATIVE (NEGATIVE); BILIRUBIN, URINE AUTO NEGATIVE (NEGATIVE); BLOOD, URINE BLOOD NEGATIVE (NEGATIVE); COLOR, URINE STRAW (YELLOW); GLUCOSE, URINE (UA) AUTO NEGATIVE (NEGATIVE); KETONE, URINE AUTO NEGATIVE (NEGATIVE); LEUKOCYTE ESTERASE, URINE AUTO NEGATIVE (NEGATIVE); NITRITE, URINE AUTO NEGATIVE (NEGATIVE); PROTEIN, URINE AUTO NEGATIVE (NEGATIVE); RBC, URINE AUTO 0 /HPF (0-3); SPECIFIC GRAVITY URINE AUTO 1.006 (1.002-1.035); SQUAMOUS EPITHELIAL CELL UR AU 0 /HPF (0-6); UROBILINOGEN, URINE AUTO 0.2 mg/dL (0.0-2.0); WBC, URINE AUTO 0 /HPF (0-3)
== END ==
LOC: M SMT 13:01
PROVIDERS: ATTEND Urology
DX: N30.01 Acute cystitis with hematuria (principal); R97.20 Elevated prostate specific antigen [PSA]
CPT/HCPCS: 81001; 84154; 87086; G0463

== ENCOUNTER → 2020-08-02 | Outpatient (REF) | payer MEDICARE, BC ==
[2020-08-04 23:07] LABS: PSA TOTAL 21.1 ng/mL (0.0-4.0)
== END ==
LOC: M SFHCADAM 13:56
PROVIDERS: ATTEND Urology
DX: R97.20 Elevated prostate specific antigen [PSA] (principal)

== ENCOUNTER → 2020-08-08 | Outpatient (REF) | payer MEDICARE, BC ==
[2020-08-08 12:56] LABS: BASO % 0.3 % (0.0-1.0); EOS # 0.2 10^3/uL (0.0-0.5); EOS % 1.9 % (0.0-3.0); HEMATOCRIT 41.7 % (42.0-52.0); HEMOGLOBIN 13.5 g/dl (13.5-17.5); LYMPH # 3.1 10^3/uL (1.5-5.0); LYMPH % 34.1 % (24.0-44.0); MEAN CORPUSCULAR HEMOGLOBIN 30.5 pg (27.0-33.0); MEAN CORPUSCULAR HGB CONC 32.4 g/dl (32.0-36.5); MEAN CORPUSCULAR VOLUME 94.3 fl (80.0-96.0); MONO # 0.6 10^3/uL (0.0-0.8); MONO % 6.9 % (2.0-8.0); NEUTROPHILS # 5.1 10^3/uL (1.5-8.5); NEUTROPHILS % 56.4 % (36.0-66.0); PLATELET COUNT, AUTOMATED 184 10^3/uL (150-450); RED BLOOD COUNT 4.42 10^6/uL (4.30-6.10); WHITE BLOOD COUNT 9.1 10^3/uL (4.0-10.0)
[2020-08-08 13:29] LABS: ERYTHROCYTE SEDIMENTATION RATE 10 mm/hr (0-20)
[2020-08-08 13:39] LABS: C REACTIVE PROTEIN QUANTITATIV < 0.30 MG/DL (0.00-0.30); FREE T4 1.08 NG/DL (0.76-1.46)
== END ==
LOC: M SFHCADAM 10:06
PROVIDERS: ATTEND Family Medicine
DX: R53.83 Other fatigue (principal)

== ENCOUNTER → 2020-08-10 | Outpatient (CLI) | payer MEDICARE, BC ==
--- NOTE | 2020-08-10 15:34 | REP ---
INDICATION: FATIGUE, UNSPECIFIED TYPE. COMPARISON: Comparison chest x-ray July 10, 2019. TECHNIQUE: Two views.. FINDINGS: The lungs are symmetrically aerated and clear. There are 2 2 granulomatous calcifications on the left unchanged. Pleural angles are sharp. Heart is not enlarged. Aorta is calcific and tortuous. There are degenerative changes in the thoracic spine . IMPRESSION: No active disease.. <Electronically signed by Brayan Worrell > 08/10/20 [id number]
== END ==
LOC: M ADAMS 14:41
PROVIDERS: ATTEND Family Medicine
DX: R53.83 Other fatigue (principal); M51.34 Other intervertebral disc degeneration, thoracic region
CPT/HCPCS: 71046; G0463

== ENCOUNTER → 2021-01-04 | Outpatient (REF) | payer MEDICARE, BC ==
[2021-01-04 13:32] LABS: BLOOD UREA NITROGEN 19 MG/DL (7-18); CALCIUM LEVEL 9.2 MG/DL (8.8-10.2); CARBON DIOXIDE LEVEL 30 MEQ/L (21-32); CHLORIDE LEVEL 107 MEQ/L (98-107); CREATININE FOR GFR 0.94 MG/DL (0.70-1.30); GLOMERULAR FILTRATION RATE > 60.0 (>35); GLUCOSE, FASTING 92 MG/DL (70-100); POTASSIUM SERUM 4.5 MEQ/L (3.5-5.1); SODIUM LEVEL 142 MEQ/L (136-145)
== END ==
LOC: M LABDRWAD 12:33
PROVIDERS: ATTEND Nurse Practitioner Family
DX: I10 Essential (primary) hypertension (principal); R60.0 Localized edema

== ENCOUNTER → 2021-01-25 | Outpatient (REF) | payer MEDICARE, BC ==
[~2021-01-25] MED LIST changes: +FLOM0.4C39 PO; +HYDR-643 PO; +MELA3TAB49 PO; +MULT-90 PO; +POTA-136 PO; +VITA500045 PO
[2021-01-25 13:11] LABS: BASO # 0.1 10^3/uL (0.0-0.2); BASO % 0.6 % (0.0-1.0); EOS # 0.2 10^3/uL (0.0-0.5); EOS % 2.7 % (0.0-3.0); HEMATOCRIT 43.1 % (42.0-52.0); HEMOGLOBIN 13.8 g/dl (13.5-17.5); LYMPH # 2.7 10^3/uL (1.5-5.0); LYMPH % 32.2 % (24.0-44.0); MEAN CORPUSCULAR HEMOGLOBIN 30.4 pg (27.0-33.0); MEAN CORPUSCULAR VOLUME 94.9 fl (80.0-96.0); MONO # 0.7 10^3/uL (0.0-0.8); MONO % 8.5 % (2.0-8.0); NEUTROPHILS # 4.6 10^3/uL (1.5-8.5); NEUTROPHILS % 55.8 % (36.0-66.0); PLATELET COUNT, AUTOMATED 168 10^3/uL (150-450); RED BLOOD COUNT 4.54 10^6/uL (4.30-6.10); WHITE BLOOD COUNT 8.3 10^3/uL (4.0-10.0)
[2021-01-25 13:49] LABS: ALBUMIN 3.3 GM/DL (3.2-5.2); ALT/SGPT 21 U/L (12-78); BILIRUBIN,TOTAL 0.4 MG/DL (0.2-1.0); BLOOD UREA NITROGEN 17 MG/DL (7-18); CARBON DIOXIDE LEVEL 32 MEQ/L (21-32); CHLORIDE LEVEL 107 MEQ/L (98-107); CREATININE FOR GFR 0.97 MG/DL (0.70-1.30); GLOMERULAR FILTRATION RATE > 60.0 (>35); GLUCOSE, FASTING 111 MG/DL (70-100); POTASSIUM SERUM 4.6 MEQ/L (3.5-5.1); SODIUM LEVEL 142 MEQ/L (136-145); TOTAL PROTEIN 6.9 GM/DL (6.4-8.2)
== END ==
LOC: M SFHCADAM 10:08
PROVIDERS: ATTEND Family Medicine
DX: L29.9 Pruritus, unspecified (principal); I10 Essential (primary) hypertension; R97.20 Elevated prostate specific antigen [PSA]
CPT/HCPCS: 80053; 84153; 84443; 85025; G0463

== ENCOUNTER → 2021-02-14 | Outpatient (REF) | payer MEDICARE, BC ==
[~2021-02-14] MED LIST changes: -FLOM0.4C39 PO; -HYDR-643 PO; -MELA3TAB49 PO; -MULT-90 PO; -POTA-136 PO; -VITA500045 PO
== END ==
LOC: M SMT PRO 11:59
PROVIDERS: ATTEND Urology
DX: C61 Malignant neoplasm of prostate (principal)

== ENCOUNTER → 2021-02-23 | Outpatient (REF) | payer MEDICARE, BC ==
[2021-02-23 17:59] LABS: BLOOD UREA NITROGEN 21 MG/DL (7-18); CALCIUM LEVEL 8.8 MG/DL (8.8-10.2); CARBON DIOXIDE LEVEL 30 MEQ/L (21-32); CHLORIDE LEVEL 106 MEQ/L (98-107); CREATININE FOR GFR 0.98 MG/DL (0.70-1.30); GLOMERULAR FILTRATION RATE > 60.0 (>35); GLUCOSE, FASTING 88 MG/DL (70-100); POTASSIUM SERUM 4.2 MEQ/L (3.5-5.1); SODIUM LEVEL 141 MEQ/L (136-145)
== END ==
LOC: M LABDRWAD 17:12 → M SMT 17:12
PROVIDERS: ATTEND Urology
DX: C61 Malignant neoplasm of prostate (principal)

== ENCOUNTER → 2021-03-14 | Outpatient (CLI) | payer MEDICARE, BC ==
[~2021-03-14] MED LIST changes: +FLOM0.4C39 PO; +MELA3TAB49 PO; +MULT-90 PO; +POTA-136 PO; +VITA500045 PO
== END ==
LOC: M ONCR 10:53
PROVIDERS: ATTEND General Practice
DX: C61 Malignant neoplasm of prostate (principal); R35.1 Nocturia; Z79.899 Other long term (current) drug therapy

== ENCOUNTER → 2021-04-17 | Outpatient (RCR) | payer MEDICARE, BC ==
[~2021-04-17] MED LIST changes: -D31000TA2 PO; +HYDR-643 PO; +VITA100093 PO
== END ==
LOC: M ONCR 03-21 14:05
PROVIDERS: ATTEND General Practice
DX: C61 Malignant neoplasm of prostate (principal)

== ENCOUNTER 2021-05-10 08:23 | Outpatient (RCR) | payer MEDICARE, BC | END 2021-05-18 | LOC: M ONCR 08:23 | PROVIDERS: ATTEND General Practice | DX: C61 Malignant neoplasm of prostate (principal) ==

== ENCOUNTER → 2021-08-07 | Outpatient (CLI) | payer MEDICARE, BC ==
[~2021-08-07] MED LIST changes: +CIPR750T2 PO
[2021-08-07 14:42] LABS: PROSTATIC SPECIFIC AG MONITOR < 0.01 NG/ML (< 4.00); TESTOSTERONE 8 NG/DL (241-827)
== END ==
LOC: M ADAMS 08:06
PROVIDERS: ATTEND General Practice
DX: C61 Malignant neoplasm of prostate (principal)

== ENCOUNTER → 2021-08-10 | Outpatient (CLI) | payer MEDICARE, BC ==
[~2021-08-10] MED LIST changes: +MYRB50TA PO
== END ==
LOC: M ONCR 10:59
PROVIDERS: ATTEND General Practice
DX: C61 Malignant neoplasm of prostate (principal); R33.9 Retention of urine, unspecified; R39.15 Urgency of urination; Z79.818 Long term (current) use of other agents affecting estrogen receptors and estrogen levels; Z79.899 Other long term (current) drug therapy; Z88.8 Allergy status to other drugs, medicaments and biological substances; Z92.3 Personal history of irradiation

== ENCOUNTER 2021-09-14 10:46 | Inpatient (IN) | payer MEDICARE, BC ==
[2021-09-14] MEDS ORDERED: ONDANSETRON 4MG 2ML VIAL IV ONE (10:50)
[2021-09-14 11:25] LABS: BASO % 0.4 % (0.0-1.0); EOS # 0.1 10^3/uL (0.0-0.5); EOS % 1.9 % (0.0-3.0); HEMATOCRIT 37.1 % (42.0-52.0); HEMOGLOBIN 12.5 g/dl (13.5-17.5); LYMPH # 2.3 10^3/uL (1.5-5.0); LYMPH % 30.3 % (24.0-44.0); MEAN CORPUSCULAR HEMOGLOBIN 31.2 pg (27.0-33.0); MEAN CORPUSCULAR HGB CONC 33.7 g/dl (32.0-36.5); MEAN CORPUSCULAR VOLUME 92.5 fl (80.0-96.0); MONO # 0.5 10^3/uL (0.0-0.8); MONO % 7.2 % (2.0-8.0); NEUTROPHILS # 4.5 10^3/uL (1.5-8.5); NEUTROPHILS % 59.8 % (36.0-66.0); PLATELET COUNT, AUTOMATED 156 10^3/uL (150-450); RED BLOOD COUNT 4.01 10^6/uL (4.30-6.10); WHITE BLOOD COUNT 7.5 10^3/uL (4.0-10.0)
[2021-09-14 11:39] LABS: INR 1.01; PROTHROMBIN TIME 13.7 SECONDS (12.7-14.5)
[2021-09-14 11:40] LABS: PARTIAL THROMBOPLASTIN TIME 26.7 SECONDS (25.9-37.0)
[2021-09-14 11:45] LABS: BLOOD UREA NITROGEN 18 MG/DL (7-18); CALCIUM LEVEL 9.1 MG/DL (8.8-10.2); CARBON DIOXIDE LEVEL 26 MEQ/L (21-32); CHLORIDE LEVEL 112 MEQ/L (98-107); CREATININE FOR GFR 1.09 MG/DL (0.70-1.30); GLOMERULAR FILTRATION RATE > 60.0 (>35); GLUCOSE, FASTING 187 MG/DL (70-100); POTASSIUM SERUM 3.3 MEQ/L (3.5-5.1); SODIUM LEVEL 145 MEQ/L (136-145)
[2021-09-14 11:50] LABS: CK-MB VALUE MASS 3.7 NG/ML (<3.6); MB/CK RELATIVE INDEX 3.43 (< OR =4)
[2021-09-14] MEDS ORDERED: NS 1,000 ML IV ONE ×2 (11:50→12:40)
[2021-09-14 12:34] LABS: RSV AMPLIFICATION NEGATIVE (NEGATIVE)
[2021-09-14] MEDS ORDERED: ISOVUE-370 76% 100ML VIAL As Ordered ONE (12:43)
[2021-09-14 14:33] LABS: ALBUMIN 3.3 GM/DL (3.2-5.2); BILIRUBIN,DIRECT 0.1 MG/DL (0.0-0.2); BILIRUBIN,TOTAL 0.3 MG/DL (0.2-1.0); TOTAL PROTEIN 6.3 GM/DL (6.4-8.2)
[2021-09-14] MEDS ORDERED: HYDR-643 PO (15:45)
[2021-09-14] MEDS ORDERED: LISI20TA33 PO (15:45)
[2021-09-14] MEDS ORDERED: AMLO1TAB24 PO (15:45)
[2021-09-14] MEDS ORDERED: MELA5CAP2 PO (15:45)
[2021-09-14] MEDS ORDERED: HOME MED LIST COMPLETE! XX SCH (15:45)
[2021-09-14] MEDS ORDERED: VITAE40CA PO (15:45)
[2021-09-14] MEDS ORDERED: FLOM0.4C39 PO (15:45)
[2021-09-14] MEDS ORDERED: CALC-211 PO (15:45)
[2021-09-14] MEDS ORDERED: GLUCTAB7 PO (15:45)
[2021-09-14] MEDS ORDERED: MYRB50TA PO (15:45)
[2021-09-14] MEDS ORDERED: POTASSIUM CHLORIDE 10MEQ SR TABLET PO ONE (16:35)
[2021-09-14 17:32] VITALS: BP 176/82
[2021-09-14 18:00] VITALS: O2SAT 97
[2021-09-14 20:00] VITALS: BP 166/78; O2SAT 98
[2021-09-14] MEDS: POTASSIUM CHLORIDE 10MEQ SR TABLET PO SCH (23:02)
[2021-09-14] MEDS: amLODIPine 5 MG TAB PO SCH (23:03)
[2021-09-15] VITALS (13 sets, daily range): BP systolic 140–205; BP diastolic 61–99; O2SAT 94–98
[2021-09-15 07:26] LABS: HEMATOCRIT 35.8 % (42.0-52.0); HEMOGLOBIN 11.9 g/dl (13.5-17.5); MEAN CORPUSCULAR HEMOGLOBIN 31.2 pg (27.0-33.0); MEAN CORPUSCULAR HGB CONC 33.2 g/dl (32.0-36.5); MEAN CORPUSCULAR VOLUME 93.7 fl (80.0-96.0); PLATELET COUNT, AUTOMATED 136 10^3/uL (150-450); RED BLOOD COUNT 3.82 10^6/uL (4.30-6.10); WHITE BLOOD COUNT 6.8 10^3/uL (4.0-10.0)
[2021-09-15 08:03] LABS: BLOOD UREA NITROGEN 16 MG/DL (7-18); CALCIUM LEVEL 8.9 MG/DL (8.8-10.2); CARBON DIOXIDE LEVEL 29 MEQ/L (21-32); CHLORIDE LEVEL 113 MEQ/L (98-107); CREATININE FOR GFR 0.88 MG/DL (0.70-1.30); FERRITIN 75 NG/ML (26-388); GLOMERULAR FILTRATION RATE > 60.0 (>35); GLUCOSE, FASTING 99 MG/DL (70-100); IRON (FE) 53 UG/DL (65-175); MAGNESIUM LEVEL 2.1 MG/DL (1.8-2.4); PERCENT SATURATION 21.4 % (19.7-50.0); SODIUM LEVEL 144 MEQ/L (136-145); THYROID STIMULATING HORMONE 0.678 uIU/ML (0.358-3.740); TOTAL IRON BINDING CAPACITY 248 UG/DL (250-450)
[2021-09-15] MEDS: FUROSEMIDE 40 MG TAB PO SCH (08:51)
[2021-09-15] MEDS: VITAMIN E 400 INTERNATIONAL UNITS CAP PO SCH (08:51)
[2021-09-15] MEDS: ASCORBIC ACID 500 MG TAB PO SCH (08:51)
[2021-09-15] MEDS: amLODIPine 5 MG TAB PO SCH ×2 (08:51→22:03)
[2021-09-15] MEDS: OMEPRAZOLE 20MG CAP PO SCH (08:51)
[2021-09-15] MEDS: VITAMIN D 1,000 INTERNATIONAL UNITS TABLET PO SCH (08:51)
[2021-09-15] MEDS: POTASSIUM CHLORIDE 10MEQ SR TABLET PO SCH ×2 (08:52→22:02)
[2021-09-15] MEDS ORDERED: ACETAMINOPHEN 650MG ER TAB (TYLENOL ARTHRITIS) PO SCH (21:00)
[2021-09-15] MEDS ORDERED: RAMELTEON 8 MG TAB (ROZEREM) PO SCH (21:00)
[2021-09-16 00:12] VITALS: O2SAT 94
[2021-09-16 05:47] VITALS: BP 160/79
[2021-09-16 05:50] VITALS: BP_SYST 158; BP_SYST 160; BP_SYST 172; BP_DIAS 79; BP_DIAS 89
[2021-09-16 06:36] LABS: HEMATOCRIT 36.2 % (42.0-52.0); HEMOGLOBIN 12.2 g/dl (13.5-17.5); MEAN CORPUSCULAR HEMOGLOBIN 31.2 pg (27.0-33.0); MEAN CORPUSCULAR HGB CONC 33.7 g/dl (32.0-36.5); MEAN CORPUSCULAR VOLUME 92.6 fl (80.0-96.0); PLATELET COUNT, AUTOMATED 144 10^3/uL (150-450); RED BLOOD COUNT 3.91 10^6/uL (4.30-6.10); WHITE BLOOD COUNT 5.7 10^3/uL (4.0-10.0)
[2021-09-16 06:57] LABS: BLOOD UREA NITROGEN 21 MG/DL (7-18); CALCIUM LEVEL 8.7 MG/DL (8.8-10.2); CARBON DIOXIDE LEVEL 30 MEQ/L (21-32); CHLORIDE LEVEL 110 MEQ/L (98-107); CREATININE FOR GFR 0.87 MG/DL (0.70-1.30); GLOMERULAR FILTRATION RATE > 60.0 (>35); GLUCOSE, FASTING 98 MG/DL (70-100); POTASSIUM SERUM 3.5 MEQ/L (3.5-5.1); SODIUM LEVEL 145 MEQ/L (136-145)
[2021-09-16] MEDS ORDERED: PILL CUTTER 1 EACH XX PRN (09:05)
[2021-09-16] MEDS: OMEPRAZOLE 20MG CAP PO SCH (09:16)
[2021-09-16] MEDS: FUROSEMIDE 40 MG TAB PO SCH (09:17)
[2021-09-16 09:18] VITALS: BP 148/79
[2021-09-16] MEDS: VITAMIN D 1,000 INTERNATIONAL UNITS TABLET PO SCH (09:18)
[2021-09-16] MEDS: amLODIPine 5 MG TAB PO SCH (09:18)
[2021-09-16] MEDS: ASCORBIC ACID 500 MG TAB PO SCH (09:19)
[2021-09-16] MEDS: POTASSIUM CHLORIDE 10MEQ SR TABLET PO SCH (09:19)
[2021-09-16 09:25] VITALS: O2SAT 98
[2021-09-16] MEDS ORDERED: LISI40TA4 PO (09:46)
[2021-09-16] MEDS: VITAMIN E 400 INTERNATIONAL UNITS CAP PO SCH (10:52)
== END 2021-09-16 11:52 | disposition home or self-care (01) | DRG 312 ==
LOC: M ED 10:46 → EDBD 10:46 → M ED INP 15:51 → ENRESERV 16:51 → M PCU 17:42 → M MSPAV 09-15 11:26
PROVIDERS: ADMIT Internal Medicine; ATTEND Internal Medicine
PROC: B246ZZZ Ultrasonography of Right and Left Heart (ICD-10-PCS; principal; 2021-09-14)
DX: R55 Syncope and collapse (principal); J84.9 Interstitial pulmonary disease, unspecified; R00.1 Bradycardia, unspecified; I10 Essential (primary) hypertension; R11.10 Vomiting, unspecified; R53.1 Weakness; Z85.46 Personal history of malignant neoplasm of prostate; Z92.3 Personal history of irradiation; K21.9 Gastro-esophageal reflux disease without esophagitis; M51.35 Other intervertebral disc degeneration, thoracolumbar region; K22.70 Barrett's esophagus without dysplasia; Z90.79 Acquired absence of other genital organ(s); Z96.653 Presence of artificial knee joint, bilateral; E87.6 Hypokalemia; Z20.822 Contact with and (suspected) exposure to COVID-19; Z79.899 Other long term (current) drug therapy; Z88.8 Allergy status to other drugs, medicaments and biological substances; G47.00 Insomnia, unspecified; M19.90 Unspecified osteoarthritis, unspecified site

== ENCOUNTER 2022-01-30 12:34 | Outpatient (RCR) | payer MEDICARE, BC ==
[~2022-01-30 12:34] MED LIST changes: +CALC-211 PO; +GLUCTAB7 PO; +LISI40TA4 PO; +MELA5CAP2 PO; +VITAE40CA PO
[2022-01-30 13:54] LABS: PROSTATIC SPECIFIC AG MONITOR 0.04 NG/ML (< 4.00)
== END 2022-02-17 ==
LOC: M ONCR 12:34
PROVIDERS: ATTEND General Practice
DX: C61 Malignant neoplasm of prostate (principal)
CPT/HCPCS: 36415; 84153; 84403; G0463

== ENCOUNTER → 2022-02-06 | Outpatient (CLI) | payer MEDICARE, BC | LOC: M ONCR 10:33 | PROVIDERS: ATTEND General Practice | DX: C61 Malignant neoplasm of prostate (principal); Z92.3 Personal history of irradiation; Z79.818 Long term (current) use of other agents affecting estrogen receptors and estrogen levels; Z79.899 Other long term (current) drug therapy ==

== ENCOUNTER → 2022-02-13 | Outpatient (CLI) | payer MEDICARE, BC | LOC: M RAD 15:55 | PROVIDERS: ATTEND Orthopaedic Surgery | DX: M48.062 Spinal stenosis, lumbar region with neurogenic claudication (principal); M25.78 Osteophyte, vertebrae; M51.26 Other intervertebral disc displacement, lumbar region; M43.16 Spondylolisthesis, lumbar region ==

== ENCOUNTER → 2022-07-31 | Outpatient (CLI) | payer MEDICARE, BC | LOC: M LAB 10:23 | PROVIDERS: ATTEND General Practice | DX: C61 Malignant neoplasm of prostate (principal) ==

== ENCOUNTER → 2022-08-10 | Outpatient (CLI) | payer MEDICARE, BC ==
[~2022-08-10] MED LIST changes: -HYDR200T3 PO; +HYDR200T46 PO
== END ==
LOC: M ONCR 09:30
PROVIDERS: ATTEND General Practice
DX: C61 Malignant neoplasm of prostate (principal); Z71.2 Person consulting for explanation of examination or test findings; Z79.818 Long term (current) use of other agents affecting estrogen receptors and estrogen levels; Z79.899 Other long term (current) drug therapy; Z88.4 Allergy status to anesthetic agent

== ENCOUNTER → 2022-10-11 | Outpatient (REF) | payer MEDICARE, BC ==
[2022-10-11 13:01] LABS: BASO % 0.5 % (0.0-1.0); EOS # 0.2 10^3/uL (0.0-0.5); EOS % 2.3 % (0.0-3.0); HEMATOCRIT 37.6 % (42.0-52.0); HEMOGLOBIN 12.2 g/dl (13.5-17.5); LYMPH # 1.8 10^3/uL (1.5-5.0); MEAN CORPUSCULAR HEMOGLOBIN 30.7 pg (27.0-33.0); MEAN CORPUSCULAR HGB CONC 32.4 g/dl (32.0-36.5); MEAN CORPUSCULAR VOLUME 94.7 fl (80.0-96.0); MONO # 0.6 10^3/uL (0.0-0.8); MONO % 9.6 % (2.0-8.0); NEUTROPHILS # 3.9 10^3/uL (1.5-8.5); NEUTROPHILS % 59.3 % (36.0-66.0); PLATELET COUNT, AUTOMATED 172 10^3/uL (150-450); RED BLOOD COUNT 3.97 10^6/uL (4.30-6.10); WHITE BLOOD COUNT 6.5 10^3/uL (4.0-10.0)
[2022-10-11 13:23] LABS: ALBUMIN 3.3 G/DL (3.2-5.2); ALKALINE PHOSPHATASE 114 U/L (46-116); ALT/SGPT 17 U/L (7.0-40); AST/SGOT 12 U/L (<34); BILIRUBIN,TOTAL 0.4 MG/DL (0.3-1.2); BLOOD UREA NITROGEN 19 MG/DL (9-23); CARBON DIOXIDE LEVEL 31 MMOL/L (20-31); CHLORIDE LEVEL 105 MMOL/L (98-107); CREATININE FOR GFR 0.81 MG/DL (0.70-1.30); GLOMERULAR FILTRATION RATE > 60.0 (>35); GLUCOSE, FASTING 104 MG/DL (74-106); SODIUM LEVEL 143 MMOL/L (136-145); TOTAL PROTEIN 6.4 G/DL (5.7-8.2)
== END ==
LOC: M SFHCADAM 11:20
PROVIDERS: ATTEND Physician Assistant
DX: L29.9 Pruritus, unspecified (principal)

== ENCOUNTER → 2023-02-13 | Outpatient (REF) | payer MEDICARE, BC | LOC: M SFHCADAM 14:36 | PROVIDERS: ATTEND Urology | DX: C61 Malignant neoplasm of prostate (principal) ==

== ENCOUNTER → 2023-07-30 | Outpatient (REF) | payer MEDICARE, BC | LOC: M LABDRWAD 13:31 | PROVIDERS: ATTEND General Practice | DX: C61 Malignant neoplasm of prostate (principal) ==

== ENCOUNTER → 2023-08-09 | Outpatient (CLI) | payer MEDICARE, BC | LOC: M ONCR 09:25 | PROVIDERS: ATTEND General Practice | DX: Z08 Encounter for follow-up examination after completed treatment for malignant neoplasm (principal); Z85.46 Personal history of malignant neoplasm of prostate; Z71.2 Person consulting for explanation of examination or test findings; Z92.3 Personal history of irradiation; Z92.29 Personal history of other drug therapy; Z88.8 Allergy status to other drugs, medicaments and biological substances; Z79.899 Other long term (current) drug therapy ==